=== PATIENT | male | born 1975 | race Hispanic/Latino ===

== ENCOUNTER 2020-07-24 19:08 | Inpatient (IN) | payer SELFPAY ==
[2020-07-24 19:46] LABS: #Eosinphils 0.2 10x3/uL (0.0-0.5); #Monocytes 0.5 10x3/uL (0.0-1.1); %Basophils 0.7 % (0.0-2.0); %Eosinophils 4.1 % (0.0-6.0); %Lymphocytes 19.7 % (18.0-47.0); %Monocytes 11.1 % (0.0-10.0); %Neutrophils 64.2 % (40.0-75.0); Hemoglobin 8.1 g/dL (13.5-17.5); Mean Corpuscular HGB CONC 32.9 g/dL (32.0-36.0); Mean Corpuscular Hemoglobin 29.1 pg (27.0-33.0); Mean Corpuscular Volume 88.5 fl (81.2-95.1); Mean Platelet Volume 9.8 fl (7.4-10.4); Platelet Count 201 10x3/uL (150-450); RBC Distribution Width 14.6 % (11.5-14.5); Red Blood Cell (RBC) Count 2.78 10x6/uL (4.32-5.72); White Blood Cell (WBC) Count 4.6 10x3/uL (3.5-10.5)
[2020-07-24 20:02] LABS: ALT (SGPT) 60 U/L (8-55); AST (SGOT) 37 U/L (5-34); Albumin 4.1 g/dL (3.5-5.0); Alkaline Phosphatase 74 U/L (40-110); Anion Gap 18 mmol/L (10-20); BUN (Urea Nitrogen) 39 mg/dL (8.9-20.6); Bilirubin, Total 0.6 mg/dL (0.2-1.2); Calc. Creatinine Clearance 0 mL/min (70-130); Calcium 8.6 mg/dL (7.8-10.44); Carbon Dioxide 28 mmol/L (22-29); Chloride 98 mmol/L (98-107); Globulin 2.6 g/dL (2.4-3.5); Glucose 97 mg/dL (70-105); Potassium 3.7 mmol/L (3.5-5.1); Protein, Total 6.7 g/dL (6.0-8.3); Sodium 140 mmol/L (136-145)
[2020-07-24] MEDS ORDERED: Aspirin Chewable 81 MG TAB ONE (20:52)
[2020-07-24] MEDS ORDERED: Zolpidem Tartrate 5 MG TAB PO PRN (22:21)
[2020-07-24] MEDS ORDERED: Ondansetron PF 4 MG/2 ML Vial IVP PRN (22:21)
[2020-07-24] MEDS ORDERED: Dextrose 5% in Water 1,000 ML IV PRN (22:21)
[2020-07-24] MEDS ORDERED: Acetaminophen 325 MG TAB PO PRN (22:21)
[2020-07-24] MEDS ORDERED: Calcium Carbonate 500 MG ChewTAB PO PRN (22:21)
[2020-07-24] MEDS ORDERED: Dextrose 50% Abboject 50 ML SYRINGE SLOW IVP PRN (22:21)
[2020-07-25 06:03] LABS: Anion Gap 17 mmol/L (10-20); BUN (Urea Nitrogen) 46 mg/dL (8.9-20.6); Calc. Creatinine Clearance 15 mL/min (70-130); Calcium 8.5 mg/dL (7.8-10.44); Carbon Dioxide 29 mmol/L (22-29); Cardiac Risk 2.5 (Less than 4.5); Chloride 98 mmol/L (98-107); Cholesterol 107 mg/dl (< 200 Desired); Glucose 155 mg/dL (70-105); HDL Cholesterol 43 mg/dL (>60 Neg Risk); Iron 77 ug/dL (65-175); Iron Binding Capacity, Total 198 mcg/dL (261-462); LDL Cholesterol, Calculated 50 mg/dL; Potassium 4.2 mmol/L (3.5-5.1); Sodium 140 mmol/L (136-145); Triglycerides 70 mg/dL (Less than 150)
[2020-07-25 06:13] LABS: Thyroid Stimulating Hormone 0.4928 uIU/mL (0.35-4.94)
[2020-07-25] MEDS: Heparin 5,000 UNITS/ML VIAL SC SCH ×3 (08:35→20:37)
[2020-07-25] MEDS: Folic Acid/Vit B Comp W-C PO SCH (08:36)
[2020-07-25] MEDS: Senokot S 8.6-50 MG TAB PO PRN (08:36)
[2020-07-25] MEDS: Calcium Acetate 667 MG CAP PO SCH ×3 (08:36→16:36)
[2020-07-25] MEDS: Sevelamer Carbonate 800 MG TAB PO SCH ×3 (08:36→16:37)
[2020-07-25] MEDS: Aspirin 81 mg Enteric Coated Tablet PO SCH (08:36)
[2020-07-25] MEDS ORDERED: Enoxaparin Sodium 40 MG/0.4 ML SYRINGE SC SCH (09:00)
[2020-07-25 11:38] LABS: Hemoglobin A1c 6.1 % (4.0-6.0)
[2020-07-25] MEDS: HumaLOG 300 UNITS/3 ML VIAL SC PRN (11:39)
[2020-07-25 16:21] LABS: SARS-CoV-2 PCR by NAA Not Detected (NotDetected)
[2020-07-25] MEDS: Atorvastatin Calcium 10 MG TAB PO SCH (20:37)
[2020-07-26 01:15] VITALS: BMI 31.6
[2020-07-26 06:33] LABS: #Basophils 0.1 10x3/uL (0.0-0.2); #Eosinphils 0.2 10x3/uL (0.0-0.5); #Monocytes 0.5 10x3/uL (0.0-1.1); #Neutrophils 3.3 10x3/uL (1.5-8.4); %Eosinophils 3.6 % (0.0-6.0); %Lymphocytes 19.3 % (18.0-47.0); %Monocytes 10.7 % (0.0-10.0); %Neutrophils 65.2 % (40.0-75.0); Mean Corpuscular HGB CONC 32.7 g/dL (32.0-36.0); Mean Corpuscular Hemoglobin 29.3 pg (27.0-33.0); Mean Corpuscular Volume 89.7 fl (81.2-95.1); Mean Platelet Volume 10.1 fl (7.4-10.4); Platelet Count 188 10x3/uL (150-450); RBC Distribution Width 14.6 % (11.5-14.5); Red Blood Cell (RBC) Count 2.73 10x6/uL (4.32-5.72); White Blood Cell (WBC) Count 5.1 10x3/uL (3.5-10.5)
[2020-07-26 06:50] LABS: ALT (SGPT) 50 U/L (8-55); AST (SGOT) 26 U/L (5-34); Albumin 3.9 g/dL (3.5-5.0); Alkaline Phosphatase 62 U/L (40-110); Anion Gap 20 mmol/L (10-20); BUN (Urea Nitrogen) 65 mg/dL (8.9-20.6); Bilirubin, Total 0.6 mg/dL (0.2-1.2); Calc. Creatinine Clearance 11 mL/min (70-130); Calcium 8.7 mg/dL (7.8-10.44); Carbon Dioxide 27 mmol/L (22-29); Chloride 97 mmol/L (98-107); Globulin 2.6 g/dL (2.4-3.5); Glucose 117 mg/dL (70-105); Potassium 4.7 mmol/L (3.5-5.1); Protein, Total 6.5 g/dL (6.0-8.3); Sodium 139 mmol/L (136-145)
[2020-07-26] MEDS: Calcium Acetate 667 MG CAP PO SCH ×3 (09:59→17:50)
[2020-07-26] MEDS: Folic Acid/Vit B Comp W-C PO SCH (09:59)
[2020-07-26] MEDS: Aspirin 81 mg Enteric Coated Tablet PO SCH (09:59)
[2020-07-26] MEDS: Heparin 5,000 UNITS/ML VIAL SC SCH ×3 (09:59→21:41)
[2020-07-26] MEDS: Sevelamer Carbonate 800 MG TAB PO SCH ×3 (09:59→17:23)
[2020-07-26] MEDS: HumaLOG 300 UNITS/3 ML VIAL SC PRN (13:12)
[2020-07-26] MEDS ORDERED: Aspirin 325 MG TAB PO PRN (16:12)
[2020-07-26] MEDS ORDERED: Sevelamer Carbonate 800 MG TAB PO SCH ×2 (17:00→17:30)
[2020-07-26] MEDS: hydrALAZINE 20 MG/ML VIAL SLOW IVP PRN (17:51)
[2020-07-26] MEDS: Carvedilol 25 MG TAB PO SCH (21:42)
[2020-07-26] MEDS: Atorvastatin Calcium 10 MG TAB PO SCH (21:42)
[2020-07-27] MEDS: hydrALAZINE 20 MG/ML VIAL SLOW IVP PRN ×2 (01:22→07:01)
[2020-07-27] MEDS: Senokot S 8.6-50 MG TAB PO PRN (01:23)
[2020-07-27] MEDS ORDERED: Sevelamer Carbonate 800 MG TAB PO SCH (08:00)
[2020-07-27] MEDS: Calcium Acetate 667 MG CAP PO SCH (08:27)
[2020-07-27] MEDS: Carvedilol 25 MG TAB PO SCH (08:28)
[2020-07-27] MEDS: Aspirin 81 mg Enteric Coated Tablet PO SCH (08:28)
[2020-07-27] MEDS: Folic Acid/Vit B Comp W-C PO SCH (08:29)
[2020-07-27] MEDS: Heparin 5,000 UNITS/ML VIAL SC SCH (08:29)
[2020-07-27] MEDS ORDERED: Amlodipine 10 MG TAB PO SCH (09:00)
[2020-07-27 14:18] VITALS: TEMP 98
[2020-07-27 14:55] VITALS: BP 157/77
== END 2020-07-27 14:17 | disposition home or self-care (01) | DRG 64 ==
LOC: CSHERS 19:08 → CSHTELE 22:21 → INTOOBSV 23:20 → UNDOADMOB 23:20 → OBSVTOIN 07-26 07:53
PROVIDERS: ADMIT Student in an Organized Health Care Education/Training Program; ATTEND Family Medicine
PROC: 5A1D70Z Performance of Urinary Filtration, Intermittent, Less than 6 Hours Per Day (ICD-10-PCS; principal; 2020-07-24)
PROC: 5A1D70Z Performance of Urinary Filtration, Intermittent, Less than 6 Hours Per Day (ICD-10-PCS; 2020-07-26)
DX: I63.9 Cerebral infarction, unspecified (principal); N18.6 End stage renal disease; G81.91 Hemiplegia, unspecified affecting right dominant side; I12.0 Hypertensive chronic kidney disease with stage 5 chronic kidney disease or end stage renal disease; D63.8 Anemia in other chronic diseases classified elsewhere; Z99.2 Dependence on renal dialysis; E78.5 Hyperlipidemia, unspecified; E11.22 Type 2 diabetes mellitus with diabetic chronic kidney disease; Z86.73 Personal history of transient ischemic attack (TIA), and cerebral infarction without residual deficits; Z87.891 Personal history of nicotine dependence
CPT/HCPCS: 36415; 36416; 70450; 70551; 80048; 80053; 80061; 82607; 82746; 83036; 83540; 83550; 84443; 85025; 87635; 90935; 93005; 93306; 93880; 96372; G0257; G0378; J0360; J1644; J1815; U0003; U0005